=== PATIENT | female | born 1965 ===

== ENCOUNTER 2019-02-03 09:23 | Day surgery (SDC) | payer BC ==
[~2019-02-03] VITALS: Ht 177.8 cm; Wt 106.9 kg
[~2019-02-03 09:23] MED LIST: ACETAMINOPHEN500 MG PO; CLOB.05TO; Estrace Vagin42.5 GM VAG; Hair, Skin & N1 EACH PO
== END 2019-02-03 12:18 | disposition home or self-care (01) ==
LOC: ORSCSDS 09:23
PROVIDERS: Internal Medicine Gastroenterology
PROC: 0DJD8ZZ Inspection of Lower Intestinal Tract, Via Natural or Artificial Opening Endoscopic (ICD-10-PCS; principal; 2019-02-03 10:45)
DX: Z12.11 Encounter for screening for malignant neoplasm of colon (principal); K57.30 Diverticulosis of large intestine without perforation or abscess without bleeding; K64.8 Other hemorrhoids; Z98.84 Bariatric surgery status; E66.9 Obesity, unspecified; Z68.33 Body mass index [BMI] 33.0-33.9, adult; Z79.899 Other long term (current) drug therapy
CPT/HCPCS: J2704; J7120

== ENCOUNTER → 2019-10-08 | Outpatient (CLI) | payer BC ==
[2019-10-09 09:47] LABS: Stool Occult Blood Guaiac 1 Neg (Neg)
[2019-10-09 09:48] LABS: Stool Occult Blood Guaiac 2 Neg (Neg); Stool Occult Blood Guaiac 3 Neg (Neg)
== END | disposition home or self-care (01) ==
LOC: LAB SHORT 07:45 → LAB 07:45 → LAB FUT 09-03 16:20
PROVIDERS: Internal Medicine
DX: D64.9 Anemia, unspecified (principal)
CPT/HCPCS: 82272